=== PATIENT | female | born 1965 | race Caucasian/White ===

== ENCOUNTER 2022-09-04 09:54 | Outpatient (CLI) | payer BC, SELFPAY ==
--- NOTE | 2022-09-04 10:15 | CRLHL7_ITS ---
For Patients: As a result of the Cures Act, medical imaging exams and procedure reports are released immediately into your electronic medical record. You may view this report before your referring provider. If you have questions, please contact your health care provider. BILATERAL SCREENING MAMMOGRAM WITH COMPUTER-AIDED DETECTION AND TOMOSYNTHESIS TECHNIQUE: CC and MLO views were obtained. These mammographic images have been obtained using full-field digital technique. These mammographic images were interpreted with the benefit of computer-aided detection. Breast tomosynthesis was used in this interpretation. COMPARISON FILM: 07/24/21, 03/07/20, 12/02/18. FINDINGS: The breasts are heterogeneously dense, which may obscure small masses. IMPRESSION: There is no radiographic evidence for malignancy. ASSESSMENT: BI-RADS Category 1: Negative RECOMMENDATION: Routine screening mammogram in 1 year. A lay language report of this examination will be provided to the patient. STARR AMAYA M.D. Diagnostic/Nuclear Medicine Radiologist [email or web address] CAMILA:[email or web address] Transcribed: 09/04/2022, 2:[address]/Dictated by: Starr Amaya MD @ 09/04/2022 11:19:00 AM (Electronically Signed)
== END 2022-09-04 09:55 | disposition home or self-care (01) ==
LOC: MAMMO 09:55
PROVIDERS: PCP Emergency Medicine; Visit Provider Emergency Medicine
DX: Z12.31 Encounter for screening mammogram for malignant neoplasm of breast (principal); R92.2 Inconclusive mammogram
CPT/HCPCS: 77063; 77067

== ENCOUNTER 2022-09-13 08:08 | Outpatient (CLI) | payer BC, SELFPAY | END 2022-09-13 08:09 | disposition home or self-care (01) | LOC: NFLDREF 09-16 11:52 | PROVIDERS: PCP Emergency Medicine; Referring Provider Emergency Medicine; Visit Provider Emergency Medicine | DX: Z00.00 Encounter for general adult medical examination without abnormal findings (principal); I10 Essential (primary) hypertension; Z13.6 Encounter for screening for cardiovascular disorders | CPT/HCPCS: 80048; 80061 ==

== ENCOUNTER 2023-12-04 08:12 | Outpatient (CLI) | payer BC, SELFPAY | END 2023-12-04 08:13 | disposition home or self-care (01) | LOC: NFLDREF 12-05 09:00 | PROVIDERS: PCP Emergency Medicine; Referring Provider Emergency Medicine; Visit Provider Emergency Medicine | DX: R73.01 Impaired fasting glucose (principal); E78.5 Hyperlipidemia, unspecified; I10 Essential (primary) hypertension | CPT/HCPCS: 80048; 80061 ==

== ENCOUNTER 2023-12-22 07:53 | Outpatient (CLI) | payer BC, SELFPAY ==
--- NOTE | 2023-12-22 09:01 | W.ANESCHARGE ---
Anesthesia Charges Start Date/Time Anesthesia Start Date: 12/22/23 Anesthesia Start Time: 09:02 Stop Date/Time Anesthesia Stop Date: 12/22/23 Anesthesia Stop Time: 09:35
--- NOTE | 2023-12-22 09:33 | W.ANESCHARGE ---
Anesthesia Charges Start Date/Time Anesthesia Start Date: 12/22/23 Anesthesia Start Time: 09:02 Stop Date/Time Anesthesia Stop Date: 12/22/23 Anesthesia Stop Time: 09:35
== END 2023-12-22 07:54 | disposition home or self-care (01) ==
LOC: OP CLINIC 07:54
PROVIDERS: PCP Emergency Medicine; Visit Provider Surgery
DX: Z12.11 Encounter for screening for malignant neoplasm of colon (principal); Z80.0 Family history of malignant neoplasm of digestive organs
CPT/HCPCS: 00811; 45378; J2704

== ENCOUNTER 2023-12-26 08:48 | Outpatient (CLI) | payer BC, SELFPAY | END 2023-12-26 08:49 | disposition home or self-care (01) | LOC: RAD 08:48 | PROVIDERS: PCP Emergency Medicine; Visit Provider Emergency Medicine | DX: I49.3 Ventricular premature depolarization (principal) | CPT/HCPCS: 93306 ==

== ENCOUNTER 2024-02-10 12:45 | Outpatient (CLI) | payer BC, SELFPAY ==
--- NOTE | 2024-02-10 13:00 | CRLHL7_ITS ---
For Patients: As a result of the Century Cures Act, medical imaging exams and procedure reports are released immediately into your electronic medical record. You may view this report before your referring provider. If you have questions, please contact your health care provider. BILATERAL SCREENING MAMMOGRAM WITH COMPUTER-AIDED DETECTION AND TOMOSYNTHESIS TECHNIQUE: CC and MLO views were obtained. These mammographic images have been obtained using full-field digital technique. These mammographic images were interpreted with the benefit of computer-aided detection. Breast Tomosynthesis was used in this interpretation. COMPARISON FILM: 09/04/22, 07/24/21, 03/07/20. FINDINGS: There are scattered areas of fibroglandular density. IMPRESSION: There is no radiographic evidence for malignancy. ASSESSMENT: BI-RADS Category 1: Negative RECOMMENDATION: Routine screening mammogram in 1 year. A lay language report of this examination will be provided to the patient. Titus Fagan M.D. Diagnostic Radiologist [email or web address] SP/Dictated by: Titus Fagan MD @ 02/13/2024 12:02:00 PM (Electronically Signed)
== END 2024-02-10 12:46 | disposition home or self-care (01) ==
LOC: MAMMO 12:45
PROVIDERS: PCP Emergency Medicine; Visit Provider Emergency Medicine
DX: Z12.31 Encounter for screening mammogram for malignant neoplasm of breast (principal)
CPT/HCPCS: 77063; 77067

== ENCOUNTER 2025-03-24 10:12 | Outpatient (CLI) | payer BC, SELFPAY | END 2025-03-24 10:13 | disposition home or self-care (01) | PROVIDERS: PCP Nurse Practitioner Family; Visit Provider Nurse Practitioner Family | DX: I10 Essential (primary) hypertension (principal); Z13.6 Encounter for screening for cardiovascular disorders | CPT/HCPCS: 80053; 80061 ==

== ENCOUNTER 2025-04-06 13:24 | Outpatient (CLI) | payer BC, SELFPAY ==
--- NOTE | 2025-04-06 13:40 | CRLHL7_ITS ---
For Patients: As a result of the Century Cures Act, medical imaging exams and procedure reports are released immediately into your electronic medical record. You may view this report before your referring provider. If you have questions, please contact your health care provider. BILATERAL DIGITAL SCREENING MAMMOGRAM WITH COMPUTER-AIDED DETECTION AND TOMOSYNTHESIS CLINICAL HISTORY: Routine screening exam. COMPARISON: Mammogram 02/10/2024, 09/04/2022 and 07/24/2021. TECHNIQUE: Digital mammogram in CC and MLO projections including computer-aided detection (CAD) and tomosynthesis. BREAST COMPOSITION: There are scattered areas of fibroglandular density. FINDINGS: RIGHT Breast: There is possible architectural distortion at 12 o`clock, middle depth. LEFT Breast: No suspicious findings. IMPRESSION: RIGHT breast possible architectural distortion. RECOMMENDATIONS: Additional mammographic views of the RIGHT breast including 90-degree lateral, spot compression CC and MLO. RIGHT breast ultrasound may also be required. The [facility] will contact the patient for follow-up. A lay language report of this examination will be provided to the patient. BI-RADS Category 0: Incomplete: Need Additional Imaging Evaluation Dictated by Maral Griffin MD @ 04/08/2025 1:13:08 PM /sp SP/Dictated by: Maral Griffin MD @ 04/08/2025 1:13:00 PM (Electronically Signed)
== END 2025-04-06 13:25 | disposition home or self-care (01) ==
LOC: MAMMO 13:25
PROVIDERS: PCP Nurse Practitioner Family; Visit Provider Nurse Practitioner Family
DX: Z12.31 Encounter for screening mammogram for malignant neoplasm of breast (principal); R92.8 Other abnormal and inconclusive findings on diagnostic imaging of breast
CPT/HCPCS: 77063; 77067

== ENCOUNTER 2025-04-14 09:35 | Outpatient (CLI) | payer BC, SELFPAY ==
--- NOTE | 2025-04-14 09:45 | CRLHL7_ITS ---
For Patients: As a result of the Cures Act, medical imaging exams and procedure reports are released immediately into your electronic medical record. You may view this report before your referring provider. If you have questions, please contact your health care provider. DIGITAL DIAGNOSTIC RIGHT MAMMOGRAM USING TOMOSYNTHESIS RIGHT BREAST ULTRASOUND CLINICAL HISTORY: RIGHT breast mass/asymmetry. COMPARISON: 04/06/2025, 02/10/2024, 09/04/2022. TECHNIQUE: Digital RIGHT mammogram in three projections. Tomosynthesis was used in this interpretation. Real-time ultrasound imaging of RIGHT breast with imaging documentation. Scanning was performed by both the technologist and the radiologist. BREAST COMPOSITION: There are scattered areas of fibroglandular density. FINDINGS: Additional mammogram images RIGHT breast submitted. Decreased conspicuity of previously noted asymmetric density behind the RIGHT nipple. No discernible mass. No suspicious calcifications. Targeted ultrasound retroareolar plane, mid depth performed circumferentially around the nipple. Benign cyst is present which measures 5 x 5 x 6 mm. No suspicious mass. IMPRESSION: No evidence of malignancy. RECOMMENDATIONS: Routine screening mammography. A lay language report of this examination will be provided to the patient. BI-RADS Category 2: Benign Dictated by Titus Fagan MD @ 04/14/2025 10:37:29 AM jj/Dictated by: Titus Fagan MD @ 04/14/2025 10:37:00 AM (Electronically Signed)
--- NOTE | 2025-04-14 10:15 | CRLHL7_ITS ---
For Patients: As a result of the Cures Act, medical imaging exams and procedure reports are released immediately into your electronic medical record. You may view this report before your referring provider. If you have questions, please contact your health care provider. SEE DIGITAL DIAGNOSTIC RIGHT MAMMOGRAM PERFORMED SAME DAY CRL:[email or web address] colon/Dictated by: Titus Fagan MD @ 04/14/2025 10:44:00 AM (Electronically Signed)
== END 2025-04-14 09:36 | disposition home or self-care (01) ==
LOC: MAMMO 09:36
PROVIDERS: PCP Nurse Practitioner Family; Visit Provider Nurse Practitioner Family
DX: N63.10 Unspecified lump in the right breast, unspecified quadrant (principal); R92.8 Other abnormal and inconclusive findings on diagnostic imaging of breast
CPT/HCPCS: 76642; 77065; G0279